=== PATIENT | male | born 1955 | race African-American/Black ===

== ENCOUNTER 2022-11-24 09:15 | Inpatient (IN) | payer MEDICARE, MEDICAID ==
[~2022-11-24] VITALS: Ht 175.3 cm; Wt 92.1 kg
[2022-11-24 09:18] VITALS: O2SAT 100
[2022-11-24] MEDS ORDERED: AMLODIPINE 10MG TABLET PO ONE (10:00)
[2022-11-24 10:22] LABS: HEMATOCRIT 43.1 % (42.0-52.0); HEMOGLOBIN 14.8 g/dL (14.0-18.0); MEAN CORPUSCULAR HEMOGLOBIN 30.2 pg (28.0-32.0); MEAN CORPUSCULAR VOLUME 88.1 fL (80.0-94.0); PLATELET 261 x1000/uL (130-400); RED BLOOD CELL COUNT 4.89 mill/uL (4.7-6.1); RED CELL DISTRIBUTION WIDTH 15.1 % (11.6-14.6)
[2022-11-24 10:34] LABS: CHLORIDE 106 mEq/L (98-107)
[2022-11-24] MEDS ORDERED: POTASSIUM CHLORIDE 20MEQ/PACKET PO NR (11:00)
[2022-11-24] MEDS ORDERED: ACETAMINOPHEN 325MG TABLET PO ONE (11:15)
[2022-11-24] MEDS ORDERED: ACETAMINOPHEN 325MG TABLET PO PRN (13:45)
[2022-11-24] MEDS ORDERED: LORAZEPAM 0.5MG TABLET PO PRN (13:45)
[2022-11-24] MEDS ORDERED: IPRATROPIUM/ALBUTEROL 0.5-3(2.5)MG/3ML NEB HHN PRN (13:45)
[2022-11-24] MEDS ORDERED: HYDROCODONE/ACETAMINOPHEN 5/325MG TABLET PO PRN (13:45)
[2022-11-24] MEDS ORDERED: ONDANSETRON HCL 4MG/2ML INJ IV PRN (13:45)
[2022-11-24] MEDS: CLONIDINE 0.1MG TABLET PO PRN (16:50)
[2022-11-24 17:12] LABS: *AMPHETAMINES SCREEN URINE NEGATIVE (NEGATIVE); *BARBITURATES SCREEN URINE NEGATIVE (NEGATIVE); *BENZODIAZEPINES SCREEN URINE NEGATIVE (NEGATIVE); *COCAINE SCREEN URINE NEGATIVE (NEGATIVE); CANNABINOID URINE SCREEN NEGATIVE (NEGATIVE); METHADONE URINE SCREEN NEGATIVE (NEGATIVE); OPIATES URINE SCREEN NEGATIVE (NEGATIVE); PHENCYCLIDINE URINE SCREEN NEGATIVE (NEGATIVE)
[2022-11-24 17:50] VITALS: BP 160/77; PULSE 52; RESP 18; TEMP 96.6
[2022-11-24 20:00] VITALS: BP 149/70; PULSE 57; RESP 18; TEMP 97.2
[2022-11-24] MEDS ORDERED: AMLO10TA80 MT (21:08)
[2022-11-24] MEDS ORDERED: PNEUMOCOCCAL 23-VAL P-SAC VAC 0.5 ML IM ONE (21:15)
[2022-11-24 21:20] LABS: HEPATITIS B SURFACE ANTIGEN NEGATIVE
[2022-11-25] VITALS: BP 151/80; PULSE 53; RESP 18; TEMP 97.3
[2022-11-25 04:00] VITALS: BP 167/87; PULSE 58; RESP 18; TEMP 97.9
[2022-11-25] MEDS: CLONIDINE 0.1MG TABLET PO PRN (04:27)
[2022-11-25] MEDS ORDERED: PNEUMOCOCCAL 23-VAL P-SAC VAC 0.5 ML IM ONE ×2 (06:30→08:00)
[2022-11-25] MEDS ORDERED: ATOR40TA70 MT (06:47)
[2022-11-25] MEDS ORDERED: ASPI-1497 MT (06:47)
[2022-11-25] MEDS ORDERED: FURO20TA4 MT (06:47)
[2022-11-25] MEDS ORDERED: ISOS20TA8 MT (06:47)
[2022-11-25] MEDS ORDERED: HYDR-4134 MT (06:47)
[2022-11-25] MEDS ORDERED: COR25 PO (06:47)
[2022-11-25 07:34] LABS: EOSINOPHILS % 4.5 % (0.0-5.0); HEMATOCRIT. 41.9 % (42.0-52.0); HEMOGLOBIN. 14.2 g/dL (14.0-18.0); LYMPHOCYTES % 42.9 % (20.0-50.0); MEAN CORPUSCULAR HEMOGLOBIN 30.1 pg (28.0-32.0); MEAN CORPUSCULAR VOLUME 88.7 fL (80.0-94.0); MONOCYTES % 10.2 % (2.0-8.0); NEUTROPHILS % 41.4 % (40.0-76.0); PLATELET 247 x1000/uL (130-400); RED BLOOD CELL COUNT 4.73 mill/uL (4.7-6.1); RED CELL DISTRIBUTION WIDTH 14.7 % (11.6-14.6)
[2022-11-25 08:00] VITALS: BP 140/92; PULSE 57; RESP 18; TEMP 97.7
[2022-11-25] MEDS: ATORVASTATIN CALCIUM 40MG TABLET PO SCH (08:52)
[2022-11-25] MEDS: ASPIRIN 81MG EC TABLET PO SCH (08:53)
[2022-11-25] MEDS: AMLODIPINE 10MG TABLET PO SCH (08:53)
[2022-11-25] MEDS ORDERED: CARVEDILOL 12.5MG TABLET PO SCH (09:00)
[2022-11-25 12:00] VITALS: BP 134/74; PULSE 53; RESP 18; TEMP 97.8
[2022-11-25 15:34] LABS: CLARITY URINE CLEAR (CLEAR); COLOR URINE YELLOW (YELLOW); KETONES URINE TRACE (NEGATIVE); LEUKOCYTE ESTERASE URINE NEGATIVE (NEGATIVE); NITRITE URINE NEGATIVE (NEGATIVE); OCCULT BLOOD URINE NEGATIVE (NEGATIVE); PH URINE 5.5 (4.5-8.0); PROTEIN URINE 1+ (NEGATIVE); SPECIFIC GRAVITY URINE 1.024 (1.005-1.030); UROBILINOGEN URINE 0.2 E.U./dL (0.2-1.0)
[2022-11-25 16:00] VITALS: BP 151/75; PULSE 62; RESP 20; TEMP 98.5
[2022-11-25] MEDS ORDERED: NALOXONE HCL 0.4MG/ML VIAL IV PRN (16:45)
[2022-11-25] MEDS: HYDRALAZINE HCL 25MG TABLET PO SCH ×2 (17:23→21:02)
[2022-11-25] MEDS ORDERED: POTASSIUM CHLORIDE 20MEQ TABLET SR PO NR (19:45)
[2022-11-25 20:47] VITALS: BP 163/90; PULSE 64; RESP 16; TEMP 98.2
[2022-11-26 00:34] VITALS: BP 166/77; PULSE 60; RESP 19; TEMP 98.2
[2022-11-26] MEDS: CLONIDINE 0.1MG TABLET PO PRN (00:43)
[2022-11-26 04:00] VITALS: BP 153/76; PULSE 65; RESP 16; RESP 19; TEMP 97.2
[2022-11-26] MEDS: HYDRALAZINE HCL 25MG TABLET PO SCH (05:16)
[2022-11-26 07:44] LABS: BASOPHILS % 0.5 % (0.0-2.0); EOSINOPHILS % 4.1 % (0.0-5.0); HEMATOCRIT. 40.9 % (42.0-52.0); LYMPHOCYTES % 44.7 % (20.0-50.0); MEAN CORPUSCULAR HEMOGLOBIN 30.3 pg (28.0-32.0); MEAN CORPUSCULAR VOLUME 88.9 fL (80.0-94.0); MEAN PLATELET VOLUME 8.1 fl (7.4-10.4); MONOCYTES % 9.3 % (2.0-8.0); NEUTROPHILS % 41.4 % (40.0-76.0); PLATELET 245 x1000/uL (130-400); RED BLOOD CELL COUNT 4.61 mill/uL (4.7-6.1); RED CELL DISTRIBUTION WIDTH 14.9 % (11.6-14.6)
[2022-11-26 08:00] VITALS: BP 154/91; PULSE 66; RESP 18; TEMP 98.1
[2022-11-26 08:09] LABS: CHLORIDE 107 mEq/L (98-107)
[2022-11-26] MEDS ORDERED: POTASSIUM CHLORIDE 20MEQ/PACKET PO SCH (08:15)
[2022-11-26] MEDS: AMLODIPINE 10MG TABLET PO SCH (10:03)
[2022-11-26] MEDS: ATORVASTATIN CALCIUM 40MG TABLET PO SCH (10:04)
[2022-11-26] MEDS: ASPIRIN 81MG EC TABLET PO SCH (10:04)
[2022-11-26 12:00] VITALS: BP 136/69; PULSE 66; RESP 18; TEMP 97.5
[2022-11-26] MEDS: HYDRALAZINE HCL 50MG TABLET PO SCH ×2 (13:47→21:05)
[2022-11-26 16:00] VITALS: BP 146/79; PULSE 67; RESP 18; TEMP 98.6
[2022-11-26 20:00] VITALS: BP 173/88; PULSE 70; RESP 19; TEMP 97.9
[2022-11-27] VITALS (7 sets, daily range): BP systolic 148–169; BP diastolic 75–97; PULSE 60–82; RESP 18–20; TEMP 97.6–98.1
[2022-11-27] MEDS: CLONIDINE 0.1MG TABLET PO PRN
[2022-11-27 05:28] LABS: EOSINOPHILS % 3.7 % (0.0-5.0); HEMOGLOBIN. 13.9 g/dL (14.0-18.0); LYMPHOCYTES % 43.3 % (20.0-50.0); MEAN CORPUSCULAR VOLUME 88.7 fL (80.0-94.0); MONOCYTES % 12.5 % (2.0-8.0); NEUTROPHILS % 39.5 % (40.0-76.0); PLATELET 237 x1000/uL (130-400); RED BLOOD CELL COUNT 4.63 mill/uL (4.7-6.1); RED CELL DISTRIBUTION WIDTH 15.1 % (11.6-14.6)
[2022-11-27] MEDS: HYDRALAZINE HCL 50MG TABLET PO SCH ×3 (05:37→20:54)
[2022-11-27 06:01] LABS: CHLORIDE 109 mEq/L (98-107)
[2022-11-27] MEDS: ASPIRIN 81MG EC TABLET PO SCH (09:00)
[2022-11-27] MEDS: AMLODIPINE 10MG TABLET PO SCH (09:02)
[2022-11-27] MEDS: ATORVASTATIN CALCIUM 40MG TABLET PO SCH (09:02)
[2022-11-27] MEDS ORDERED: POTASSIUM CHLORIDE 20MEQ TABLET SR PO NR (10:45)
[2022-11-27] MEDS ORDERED: IOHEXOL-350 100 ML BOTTLE ONE (10:52)
[2022-11-27] MEDS ORDERED: NITROGLYCERIN SPRAY/4.9GM CAN TL ONE (11:00)
[2022-11-27] MEDS ORDERED: NITROGLYCERIN SPRAY/4.9GM CAN TL SCH (11:15)
[2022-11-27] MEDS: HYDRALAZINE 20MG/ML VIAL IV PRN (13:04)
[2022-11-28 00:05] VITALS: BP 138/62; PULSE 68; RESP 19; TEMP 97.3
[2022-11-28 04:00] VITALS: BP 136/78; PULSE 64; RESP 20; TEMP 98.1
[2022-11-28] MEDS: HYDRALAZINE HCL 50MG TABLET PO SCH ×2 (06:00→20:07)
[2022-11-28] MEDS ORDERED: NICARDIPINE 100MCG/ML 10ML VIAL (CATH LAB) IV ONE (07:00)
[2022-11-28] MEDS ORDERED: NITROGLYCERIN 50MCG/ML 10ML VIAL (CATH LAB) IV ONE (07:00)
[2022-11-28 08:00] VITALS: BP 178/92; PULSE 65; RESP 20; TEMP 98.3
[2022-11-28] MEDS ORDERED: IODIXANOL 320MG/ML 100 ML BOTTLE IV ONE ×2 (08:23→12:57)
[2022-11-28] MEDS ORDERED: LIDOCAINE HCL/PF 1% 10 MG/ML 5ML VIAL ONE (08:23)
[2022-11-28] MEDS ORDERED: HEPARIN 1000 UNITS/ML 10ML ONE (08:24)
[2022-11-28] MEDS: ATORVASTATIN CALCIUM 40MG TABLET PO SCH (09:00)
[2022-11-28] MEDS: ASPIRIN 81MG EC TABLET PO SCH (09:00)
[2022-11-28] MEDS: AMLODIPINE 10MG TABLET PO SCH (09:00)
[2022-11-28] MEDS: HYDRALAZINE 20MG/ML VIAL IV PRN (09:04)
[2022-11-28] MEDS ORDERED: MIDAZOLAM HCL 2 MG/2 ML VIAL ONE (09:20)
[2022-11-28] MEDS ORDERED: FENTANYL CITRATE/PF 50MCG/ML 2ML VIAL ONE (09:20)
[2022-11-28] MEDS: LISINOPRIL 10MG TABLET PO SCH (10:15)
[2022-11-28 12:00] VITALS: BP 169/87; PULSE 68; RESP 20; TEMP 97.8
[2022-11-28] MEDS ORDERED: VERAPAMIL HCL 2.5 MG/1 ML 2ML VIAL IV ONE (12:29)
[2022-11-28] MEDS ORDERED: CLOPIDOGREL 75MG TABLET ONE (13:18)
[2022-11-28] MEDS ORDERED: HYDRALAZINE 20MG/ML VIAL ONE (13:47)
[2022-11-28] MEDS ORDERED: LABETALOL HCL 5MG/ML VIAL 20ML IV ONE (13:48)
[2022-11-28] MEDS ORDERED: ASPIRIN 325MG EC TABLET PO ONE (14:16)
[2022-11-28 16:00] VITALS: BP 183/100; PULSE 69; RESP 20; TEMP 98.2
[2022-11-28 19:41] VITALS: BP 182/98; PULSE 74; RESP 11; TEMP 98.5
[2022-11-28] MEDS: CARVEDILOL 6.25 MG TABLET PO SCH (20:07)
[2022-11-28] MEDS: CLONIDINE 0.1MG TABLET PO PRN (22:46)
[2022-11-29] VITALS: BP 145/77; PULSE 65; RESP 13; TEMP 98.8
[2022-11-29 04:00] VITALS: BP 143/86; PULSE 63; RESP 15; TEMP 98.5
[2022-11-29 07:34] VITALS: BP 153/79; PULSE 60; RESP 13; TEMP 98.2
[2022-11-29] MEDS: CARVEDILOL 6.25 MG TABLET PO SCH ×2 (08:04→21:09)
[2022-11-29] MEDS: ATORVASTATIN CALCIUM 40MG TABLET PO SCH (08:04)
[2022-11-29] MEDS: LISINOPRIL 10MG TABLET PO SCH (08:04)
[2022-11-29] MEDS: ASPIRIN 81MG EC TABLET PO SCH (08:04)
[2022-11-29] MEDS: CLOPIDOGREL 75MG TABLET PO SCH (08:04)
[2022-11-29] MEDS: HYDRALAZINE HCL 50MG TABLET PO SCH ×2 (08:04→21:10)
[2022-11-29] MEDS: AMLODIPINE 10MG TABLET PO SCH (08:05)
[2022-11-29] MEDS: SPIRONOLACTONE 25MG TABLET PO SCH (10:30)
[2022-11-29 12:00] VITALS: BP 173/93; PULSE 73; RESP 13; TEMP 97.3
[2022-11-29] MEDS: HYDRALAZINE 20MG/ML VIAL IV PRN (12:04)
[2022-11-29] MEDS ORDERED: HYDR-4135 PO ×2 (13:53)
[2022-11-29] MEDS ORDERED: LISI20TA31 PO ×2 (13:53)
[2022-11-29] MEDS ORDERED: COR6 PO (13:53)
[2022-11-29] MEDS ORDERED: SPIR25TA PO (13:53)
[2022-11-29] MEDS ORDERED: ASPI-1497 MT (13:54)
[2022-11-29] MEDS ORDERED: CLOP-31 MT (13:54)
[2022-11-29] MEDS: MECLIZINE 25MG TABLET PO PRN (15:56)
[2022-11-29 16:00] VITALS: BP 172/88; PULSE 73; RESP 13; TEMP 97.3
[2022-11-29 20:00] VITALS: BP 151/92; PULSE 73; RESP 20; TEMP 98
[2022-11-30] VITALS: BP 118/78; PULSE 91; RESP 29; TEMP 97.8
[2022-11-30 04:00] VITALS: BP 157/93; PULSE 75; RESP 19; TEMP 97.5
[2022-11-30 08:00] VITALS: BP 155/92; PULSE 72; RESP 15; TEMP 97.7
[2022-11-30] MEDS: LISINOPRIL 20MG TABLET PO SCH (08:29)
[2022-11-30] MEDS: ASPIRIN 81MG EC TABLET PO SCH (08:29)
[2022-11-30] MEDS: HYDRALAZINE HCL 50MG TABLET PO SCH ×2 (08:29→21:55)
[2022-11-30] MEDS: AMLODIPINE 10MG TABLET PO SCH (08:30)
[2022-11-30] MEDS: CARVEDILOL 6.25 MG TABLET PO SCH ×2 (08:30→21:55)
[2022-11-30] MEDS: SPIRONOLACTONE 25MG TABLET PO SCH (08:30)
[2022-11-30] MEDS: CLOPIDOGREL 75MG TABLET PO SCH (08:30)
[2022-11-30] MEDS: ATORVASTATIN CALCIUM 40MG TABLET PO SCH (08:33)
[2022-11-30 12:00] VITALS: BP 153/85; PULSE 71; RESP 16; TEMP 97.8
[2022-11-30 16:00] VITALS: BP 173/92; PULSE 64; RESP 14; TEMP 97.8
[2022-11-30] MEDS: ACETAMINOPHEN 325MG TABLET PO PRN (16:23)
[2022-11-30 20:00] VITALS: BP 162/86; PULSE 64; RESP 15; TEMP 97.7
[2022-12-01] VITALS (7 sets, daily range): BP systolic 146–170; BP diastolic 86–96; PULSE 62–74; RESP 13–18; TEMP 97.6–98.6
[2022-12-01] MEDS: LISINOPRIL 20MG TABLET PO SCH (08:56)
[2022-12-01] MEDS: CARVEDILOL 6.25 MG TABLET PO SCH ×2 (08:56→21:22)
[2022-12-01] MEDS: CLOPIDOGREL 75MG TABLET PO SCH (08:56)
[2022-12-01] MEDS: ATORVASTATIN CALCIUM 40MG TABLET PO SCH (08:56)
[2022-12-01] MEDS: ASPIRIN 81MG EC TABLET PO SCH (08:57)
[2022-12-01] MEDS: SPIRONOLACTONE 25MG TABLET PO SCH (08:57)
[2022-12-01] MEDS: HYDRALAZINE HCL 50MG TABLET PO SCH (08:57)
[2022-12-01] MEDS: AMLODIPINE 10MG TABLET PO SCH (08:57)
[2022-12-01] MEDS ORDERED: LISI40TA13 MT (10:29)
[2022-12-01] MEDS ORDERED: CHLO25TA2 PO (10:30)
[2022-12-01] MEDS ORDERED: LISINOPRIL 20MG TABLET PO NR (10:30)
[2022-12-01] MEDS: CHLORTHALIDONE 25MG TABLET PO SCH (12:13)
[2022-12-01 13:52] LABS: CHLORIDE 101 mEq/L (98-107)
[2022-12-01 14:10] LABS: HEMATOCRIT 41.7 % (42.0-52.0); HEMOGLOBIN 14.2 g/dL (14.0-18.0); MEAN CORPUSCULAR HEMOGLOBIN 30.3 pg (28.0-32.0); MEAN CORPUSCULAR VOLUME 89.1 fL (80.0-94.0); PLATELET 260 x1000/uL (130-400); RED BLOOD CELL COUNT 4.68 mill/uL (4.7-6.1); RED CELL DISTRIBUTION WIDTH 15.1 % (11.6-14.6)
[2022-12-01] MEDS: ACETAMINOPHEN 325MG TABLET PO PRN (21:27)
[2022-12-01] MEDS ORDERED: NALOXONE HCL 0.4MG/ML VIAL IV PRN (22:30)
[2022-12-02 00:43] VITALS: BP 129/78; PULSE 59; RESP 16; TEMP 97.6
[2022-12-02 04:00] VITALS: BP 130/67; PULSE 71; RESP 19; TEMP 98.6
[2022-12-02] MEDS: CLOPIDOGREL 75MG TABLET PO SCH (10:11)
[2022-12-02] MEDS: ATORVASTATIN CALCIUM 40MG TABLET PO SCH (10:11)
[2022-12-02] MEDS: ASPIRIN 81MG EC TABLET PO SCH (10:11)
[2022-12-02] MEDS: CARVEDILOL 6.25 MG TABLET PO SCH ×2 (10:12→21:33)
[2022-12-02] MEDS: AMLODIPINE 10MG TABLET PO SCH (10:12)
[2022-12-02 10:47] LABS: CLARITY URINE CLEAR (CLEAR); COLOR URINE YELLOW (YELLOW); KETONES URINE NEGATIVE (NEGATIVE); LEUKOCYTE ESTERASE URINE NEGATIVE (NEGATIVE); NITRITE URINE NEGATIVE (NEGATIVE); OCCULT BLOOD URINE NEGATIVE (NEGATIVE); PH URINE 6.5 (4.5-8.0); PROTEIN URINE NEGATIVE (NEGATIVE); UROBILINOGEN URINE 0.2 E.U./dL (0.2-1.0)
[2022-12-02 12:00] VITALS: BP 119/80; PULSE 70; RESP 20; TEMP 96.9
[2022-12-02] MEDS: CHLORTHALIDONE 25MG TABLET PO SCH (13:04)
[2022-12-02] MEDS: LISINOPRIL 40MG TABLET PO SCH (13:05)
[2022-12-02] MEDS: SPIRONOLACTONE 25MG TABLET PO SCH (13:05)
[2022-12-02 13:11] LABS: EOSINOPHILS % 4.8 % (0.0-5.0); HEMATOCRIT. 43.7 % (42.0-52.0); HEMOGLOBIN. 14.9 g/dL (14.0-18.0); LYMPHOCYTES % 36.2 % (20.0-50.0); MEAN CORPUSCULAR HEMOGLOBIN 30.2 pg (28.0-32.0); MEAN CORPUSCULAR VOLUME 88.6 fL (80.0-94.0); MEAN PLATELET VOLUME 7.9 fl (7.4-10.4); MONOCYTES % 14.7 % (2.0-8.0); NEUTROPHILS % 43.3 % (40.0-76.0); PLATELET 273 x1000/uL (130-400); RED BLOOD CELL COUNT 4.93 mill/uL (4.7-6.1); RED CELL DISTRIBUTION WIDTH 14.7 % (11.6-14.6)
[2022-12-02 13:48] LABS: CHLORIDE 101 mEq/L (98-107)
[2022-12-02] MEDS: HYDROCODONE/ACETAMINOPHEN 5/325MG TABLET PO PRN ×2 (15:11→21:33)
[2022-12-02 16:00] VITALS: BP 155/85; PULSE 65; RESP 19; TEMP 96.7
[2022-12-02 20:00] VITALS: BP 147/84; PULSE 59; RESP 20; TEMP 97.7
[2022-12-03] VITALS: BP 127/63; PULSE 55; RESP 18; TEMP 98.1
[2022-12-03 08:00] VITALS: BP 125/81; PULSE 62; RESP 20; TEMP 96.3
[2022-12-03] MEDS: ASPIRIN 81MG EC TABLET PO SCH (09:00)
[2022-12-03] MEDS: SPIRONOLACTONE 50MG TABLET PO SCH (09:00)
[2022-12-03] MEDS: AMLODIPINE 10MG TABLET PO SCH (09:00)
[2022-12-03] MEDS: CHLORTHALIDONE 25MG TABLET PO SCH (09:00)
[2022-12-03] MEDS: LISINOPRIL 40MG TABLET PO SCH (09:00)
[2022-12-03] MEDS: CLOPIDOGREL 75MG TABLET PO SCH (09:00)
[2022-12-03] MEDS: ATORVASTATIN CALCIUM 40MG TABLET PO SCH (09:00)
[2022-12-03] MEDS: CARVEDILOL 12.5MG TABLET PO SCH ×2 (09:00→21:00)
[2022-12-03 12:00] VITALS: BP 155/84; PULSE 63; RESP 20; TEMP 97.9
[2022-12-03] MEDS ORDERED: IOHEXOL-350 100 ML BOTTLE ONE (14:50)
[2022-12-03 16:00] VITALS: BP 138/75; PULSE 68; RESP 20; TEMP 97.9
[2022-12-04] VITALS: BP 111/69; PULSE 70; RESP 20; TEMP 98
[2022-12-04] MEDS: MECLIZINE 25MG TABLET PO PRN (05:26)
[2022-12-04 08:00] VITALS: BP 124/85; PULSE 65; RESP 16; TEMP 97.7
[2022-12-04] MEDS: SPIRONOLACTONE 50MG TABLET PO SCH (09:00)
[2022-12-04] MEDS: CHLORTHALIDONE 25MG TABLET PO SCH (11:51)
[2022-12-04] MEDS: CARVEDILOL 12.5MG TABLET PO SCH ×2 (11:51→21:00)
[2022-12-04] MEDS: AMLODIPINE 10MG TABLET PO SCH (11:52)
[2022-12-04] MEDS: ATORVASTATIN CALCIUM 40MG TABLET PO SCH (11:52)
[2022-12-04] MEDS: LISINOPRIL 40MG TABLET PO SCH (11:52)
[2022-12-04] MEDS: ASPIRIN 81MG EC TABLET PO SCH (11:52)
[2022-12-04] MEDS: CLOPIDOGREL 75MG TABLET PO SCH (11:53)
[2022-12-04 12:00] VITALS: BP 128/88; PULSE 68; RESP 18; TEMP 96.5
[2022-12-04 16:00] VITALS: BP 132/65; PULSE 70; RESP 18; TEMP 96.1
[2022-12-05 08:04] VITALS: BP 108/64; PULSE 62; RESP 20; TEMP 98
[2022-12-05] MEDS ORDERED: CHLO50TA MT (08:26)
[2022-12-05] MEDS ORDERED: CHLO50TA PO (08:26)
[2022-12-05] MEDS ORDERED: LISI40TA13 MT (08:28)
[2022-12-05] MEDS ORDERED: LISI40TA13 PO (08:28)
[2022-12-05] MEDS ORDERED: CARV6.2548 MT (08:30)
[2022-12-05] MEDS ORDERED: CARV6.2548 PO (08:30)
[2022-12-05] MEDS ORDERED: CLOP75TA33 PO (08:32)
[2022-12-05] MEDS ORDERED: CLOP75TA33 MT (08:32)
[2022-12-05] MEDS ORDERED: HYDR-4135 MT (08:35)
[2022-12-05] MEDS ORDERED: HYDR-4135 PO (08:35)
[2022-12-05] MEDS ORDERED: SPIR25TA6 PO (08:37)
[2022-12-05] MEDS ORDERED: SPIR25TA6 MT (08:37)
[2022-12-05] MEDS ORDERED: *PATIENT'S OWN MEDICATION STORAGE XX SCH (09:15)
[2022-12-05] MEDS: AMLODIPINE 10MG TABLET PO SCH (10:25)
[2022-12-05] MEDS: CARVEDILOL 12.5MG TABLET PO SCH ×2 (10:25→20:42)
[2022-12-05] MEDS: ATORVASTATIN CALCIUM 40MG TABLET PO SCH (10:26)
[2022-12-05] MEDS: LISINOPRIL 40MG TABLET PO SCH (10:27)
[2022-12-05] MEDS: HYDROCODONE/ACETAMINOPHEN 5/325MG TABLET PO PRN (10:27)
[2022-12-05] MEDS: ASPIRIN 81MG EC TABLET PO SCH (10:27)
[2022-12-05] MEDS: SPIRONOLACTONE 50MG TABLET PO SCH (10:28)
[2022-12-05] MEDS: CLOPIDOGREL 75MG TABLET PO SCH (10:28)
[2022-12-05] MEDS: CHLORTHALIDONE 25MG TABLET PO SCH (10:28)
[2022-12-05 12:00] VITALS: BP 97/70; PULSE 65; RESP 20; TEMP 98.5
[2022-12-05 16:00] VITALS: BP_SYST 102; BP_SYST 156; BP_DIAS 70; BP_DIAS 72; PULSE 60; PULSE 86; RESP 20; TEMP 98.1
[2022-12-05 20:00] VITALS: BP_SYST 109; BP_SYST 117; BP_SYST 125; BP_DIAS 75; BP_DIAS 78; BP_DIAS 79; PULSE 59; RESP 20; TEMP 97.7
[2022-12-06] VITALS: BP 93/44; PULSE 60; RESP 18; TEMP 97.2
[2022-12-06 04:00] VITALS: BP 104/75; PULSE 56; RESP 18; TEMP 97.5
[2022-12-06 08:00] VITALS: BP 132/84; PULSE 57; RESP 15; TEMP 97.1
[2022-12-06] MEDS: AMLODIPINE 10MG TABLET PO SCH (09:57)
[2022-12-06] MEDS: CARVEDILOL 12.5MG TABLET PO SCH (09:58)
[2022-12-06] MEDS: ATORVASTATIN CALCIUM 40MG TABLET PO SCH (09:58)
[2022-12-06] MEDS: ASPIRIN 81MG EC TABLET PO SCH (09:59)
[2022-12-06] MEDS: LISINOPRIL 40MG TABLET PO SCH (09:59)
[2022-12-06] MEDS: CLOPIDOGREL 75MG TABLET PO SCH (09:59)
[2022-12-06] MEDS: SPIRONOLACTONE 50MG TABLET PO SCH (09:59)
[2022-12-06 12:00] VITALS: BP 122/77; PULSE 67; RESP 16; TEMP 97.3
[2022-12-06] MEDS: HYDROCODONE/ACETAMINOPHEN 5/325MG TABLET PO PRN (13:07)
[2022-12-06 16:00] VITALS: BP 134/83; PULSE 69; RESP 16; TEMP 97.5
== END 2022-12-06 18:55 | DRG 246 ==
LOC: ER 09:15 → 7WST 11:54 → 3WST 11-28 14:09 → 6WST 12-02 04:50 → 8WST 12-05 12:15
PROVIDERS: ADMIT Internal Medicine; ATTEND Internal Medicine
PROC: 027035Z Dilation of Coronary Artery, One Artery with Two Drug-eluting Intraluminal Devices, Percutaneous Approach (ICD-10-PCS; principal; 2022-11-28)
PROC: 4A023N7 Measurement of Cardiac Sampling and Pressure, Left Heart, Percutaneous Approach (ICD-10-PCS; 2022-11-28)
PROC: B2111ZZ Fluoroscopy of Multiple Coronary Arteries using Low Osmolar Contrast (ICD-10-PCS; 2022-11-28)
PROC: B240ZZ3 Ultrasonography of Single Coronary Artery, Intravascular (ICD-10-PCS; 2022-11-28)
PROC: 4A02XM4 Measurement of Cardiac Total Activity, External Approach (ICD-10-PCS; 2022-11-28)
DX: I25.110 Atherosclerotic heart disease of native coronary artery with unstable angina pectoris (principal); I50.21 Acute systolic (congestive) heart failure; N17.9 Acute kidney failure, unspecified; I11.0 Hypertensive heart disease with heart failure; I16.0 Hypertensive urgency; D72.821 Monocytosis (symptomatic); E87.6 Hypokalemia; I42.9 Cardiomyopathy, unspecified; R00.1 Bradycardia, unspecified; Z20.822 Contact with and (suspected) exposure to COVID-19
CPT/HCPCS: 36415; 71045; 71275; 74174; 75571; 76700; 80048; 80305; 81003; 82962; 83036; 83735; 84484; 85025; 85027; 85347; 85379; 86803; 87340; 87426; 90732; 93005; 93306; 97116; 97162; 97530; 99285; J0360; J1644; J2250; J3010; J3490; J8597; Q9967